=== PATIENT | male | born 1955 | race Caucasian/White ===

== ENCOUNTER 2016-09-11 19:12 | Inpatient (IN) | payer BC ==
--- NOTE | ~2016-09-11 | DS ---
Discharge Summary [facility] [address] [facility] [place]. [address] NAME: DENZEL GALVEZ JR : 57 STATUS : DIS IN PAT#: [id number] AGE: 60 ADM/REG DATE : 09/11/16 MR#: [id number] REPORT SERV DATE: 09/16/16 DICTATED BY: RAFA SAUNDERS DATE: 09/15/16 REPORT STATUS : Draft TRANSCRIBED BY: MODL DATE: 09/15/16 ADMISSION DATE: 09/11/2016 DISCHARGE DATE: 09/15/2016 DISCHARGE DIAGNOSES: 1. Acute kidney injury on chronic kidney disease, creatinine was 5.65 when he was admitted, now down to 1.70, the patient's baseline creatinine is 1.30. The patient's acute kidney injury is due to WERO/ARB. 2. Hyperkalemia with potassium of 6.6 on initial presentation, down to 5.0. 3. History of alcoholic cirrhosis. 4. Hepatic encephalopathy, ammonia level was as high as 198, but now down to 58 with clear mental status. 5. Chronic obstructive pulmonary disease. 6. Obstructive sleep apnea. CONSULTS: 1. Nephrology. 2. GI. PROCEDURES: None. HOSPITAL COURSE: This is a 60-year-old gentleman with history of alcoholic cirrhosis and hepatic encephalopathy, who was admitted to the hospital with an acute kidney injury along with hyperkalemia. For details please refer to an excellent H and P dictated by Dr. Cárdenas. The patient was initially admitted to [facility] and under care of Dr. Alamo until the patient was transferred out of the [facility]. I assumed care of this patient on 09/14/2016 and by then, the patient had already gotten significant clinical improvement with IV fluids alone. The whole time the patient's diuretics and any nephrotoxic agents were held. WERO and ARB were added to allergy list to prevent future episodes. By the day of discharge, the patient's renal function steadily had improved to near baseline. The patient's hyperkalemia was also resolved. The patient is now being discharged home with very close outpatient followup plans. DISCHARGE MEDICATIONS: 1. Lactulose 30 mL p.o. b.i.d. 2. ProAir two puffs inhale q.4 hours p.r.n. 3. Coreg 3.125 mg p.o. b.i.d. 4. Cymbalta 30 mg p.o. q.h.s. 5. Lasix was changed to 40 mg p.o. daily which is a decreased dose from 80 mg b.i.d. 6. Neomycin, which was discontinued. 7. Spiriva inhaler. 8. Symbicort two puffs inhale twice daily. 9. Ambien 10 mg p.o. q.h.s. 10.Aldactone 100 mg p.o. q.a.m., this is a decreased dose from 200 mg daily. 11.Centrum one tablet p.o. daily. 12.Xifaxan 550 mg p.o. b.i.d., a new medication. Discharge Summary [address] [address] NAME: DENZEL GALVEZ JR : 57 STATUS : DIS IN PAT#: [id number] AGE: 60 ADM/REG DATE : 09/11/16 MR#: [id number] REPORT SERV DATE: 09/16/16 DICTATED BY: RAFA SAUNDERS DATE: 09/15/16 REPORT STATUS : Draft TRANSCRIBED BY: MAKENNA DATE: 09/15/16 13.Pepcid 20 mg p.o. b.i.d., a new medication. 14.WERO and ARB were discontinued. DISPOSITION: Home. FOLLOWUP: 1. Please follow up with PCP in the next one to two weeks. 2. Please follow up with Dr. Jorge in the next one to two weeks. A total of 25 minutes spent in coordinating this patient's discharge today. ROMINA/MAKENNA Rafa Saunders MD / [id number] CC: Mary Solares M.D.
--- NOTE | ~2016-09-11 | CN ---
Consultation Report [facility] [address] [place]. [address] NAME: DENZEL GALVEZ JR : 57 STATUS : ADM IN PAT#: [id number] AGE: 60 ADM/REG DATE : 09/11/16 MR#: [id number] REPORT SERV DATE: 09/12/16 DICTATED BY: KLEVER SANCHEZ DATE: 09/12/16 REPORT STATUS : Draft TRANSCRIBED BY: MAKENNA DATE: 09/12/16 CONSULTATION DATE OF CONSULTATION: HISTORY OF PRESENT ILLNESS: This patient is known to me. Recently he was admitted at [facility] with shortness of breath, tense ascites in the body and anasarca. He had large volume of paracentesis. He was started on diuretic regimen. He basically lost 80 to 100 pounds with diuretics. Lab work about eight days ago showed creatinine of 1.3 and potassium 4.9. He had elevated ammonium and was started on neomycin and lactulose. He had been feeling weak for the last few days. His family said he was confused. Laboratory work on day of admission, potassium is 7, his creatinine was up to 5. He might have fallen once. Denies any fever or chills. PAST MEDICAL HISTORY: Cirrhosis, ascites, obstructive sleep apnea, and COPD. SURGICAL HISTORY: Cholecystectomy. PHYSICAL EXAMINATION: VITAL SIGNS: Blood pressure 106/53, pulse is 82. GENERAL: In no distress. Oriented. HEENT: No asterixis. ABDOMEN: Soft, nontender. EXTREMITIES: No peripheral edema. LABORATORY: White count of 16,700, creatinine had gone from 5.6 to 4.82. The potassium is now 6.6 to 5.5. IMPRESSION: 1. Hyperkalemia and acute kidney injury, probably secondary to over diuresis. Certainly the spironolactone would do this. Also the ARB inhibitor probably decreased renal blood flow. This had been decreased two weeks ago. 2. Mild hepatic encephalopathy which is improved. His ammonia is 198. 3. Decompensated cirrhosis. PLAN: I agree with management. We will eventually need to reinstitute diuretics at a lower dose once the renal function improves. Get lactulose and add Rifaximin. Thanks. We will follow. MG/MAKENNA Klever Consultation Report [facility] [address] [place]. [address] NAME: DENZEL GALVEZ JR : 57 STATUS : ADM IN PAT#: [id number] AGE: 60 ADM/REG DATE : 09/11/16 MR#: [id number] REPORT SERV DATE: 09/12/16 DICTATED BY: KLEVER SANCHEZ DATE: 09/12/16 REPORT STATUS : Draft TRANSCRIBED BY: MODL DATE: 09/12/16 Mary Sanchez / [id number] CC: aMry Solares M.D.
--- NOTE | ~2016-09-11 | HP ---
History And Physical [address] [place]. [address] NAME: DENZEL GALVEZ JR : 57 STATUS : ADM IN [facility]#: [id number] AGE: 60 ADM/REG DATE : 09/11/16 MR#: [id number] REPORT SERV DATE: 09/12/16 DICTATED BY: ONOFRE SHEARER DATE: 09/12/16 REPORT STATUS : Draft TRANSCRIBED BY: MODL DATE: 09/12/16 DATE OF ADMISSION: 09/11/2016 CHIEF COMPLAINT: A 60-year-old male presenting with recently diagnosed alcoholic cirrhosis and now evidence of acute renal failure. HISTORY OF PRESENTING ILLNESS: The patient's history was obtained through careful interview with the patient, daughter, and common-law , coupled with review of [facility] medical records. The patient just in 2016 was diagnosed with COPD and cirrhosis. His cirrhosis has been complicated with severe ascites and apparently has had to have paracentesis x2 up to a 9-1/2 L drainage earlier this year. Because of these new diagnoses, the patient has been on multiple new medications, but particularly has had to have many new medications for his cirrhosis. These new medications specifically include increasing doses of Lasix as well as spironolactone and lactulose. The patient admits that over the last few weeks, he has had increasing weakness, debilitation. He this year lost about 100 pounds going from 348 pounds to 250 pounds. The family complains that he has been sleeping sometimes 23 hours a day and is sometimes quite somnolent and even confused. He fell at night because of lightheadedness and weakness and today the family could not even get him up to take his usual morning medications. He describes a dry sore throat with dysphagia, 7/10 severity. No abdominal pain. No chest pain. No shortness of breath. No headache. He admits to diarrhea related to his lactulose. No cough. No shortness of breath now. REVIEW OF SYSTEMS: Otherwise, a 14-point review of systems was obtained and was negative. PAST MEDICAL HISTORY: 1. Cirrhosis, thought to be from alcoholism with mild splenomegaly. 2. Ascites. 3. Hepatic encephalopathy on lactulose. 4. Obstructive sleep apnea, on CPAP. 5. Hepatitis as a teenager. 6. Alcoholism. 7. COPD. History And Physical [address] [place]. [address] NAME: DENZEL GALVEZ JR : 57 STATUS : ADM IN PAT#: [id number] AGE: 60 ADM/REG DATE : 09/11/16 MR#: [id number] REPORT SERV DATE: 09/12/16 DICTATED BY: ONOFRE SHEARER DATE: 09/12/16 REPORT STATUS : Draft TRANSCRIBED BY: MODL DATE: 09/12/16 8. Nephrolithiasis. 9. Abdominal aortic aneurysm, 3.5 cm. PAST SURGICAL HISTORY: 1. Appendectomy. 2. UPPP. 3. Septoplasty. 4. Cervical spine surgery. 5. Cholecystectomy. ALLERGIES: LEVAQUIN. SOCIAL HISTORY: The patient quit smoking just within the last one or two months, used to drink heavy amount of liquor, but has cut back significantly. 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 He has common-law who stays with him quite frequently. His daughter lives locally. 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 FAMILY HISTORY: Diabetes, heart disease, mother and father with cancer. CURRENT MEDICATIONS: Include albuterol inhaler, Symbicort two puffs inhaled twice a day, Coreg 3.125 mg p.o. b.i.d., Cymbalta 30 mg daily, Lasix 80 mg p.o. b.i.d., Avapro 150 mg daily, lactulose 30 mL p.o. b.i.d., multivitamin daily, neomycin 500 mg p.o. four times a day, spironolactone 200 mg p.o. daily, Spiriva inhaled daily, Ambien at nighttime. PHYSICAL EXAMINATION: VITAL SIGNS: Temperature 97.8, pulse 82, blood pressure 106/53, respiratory rate 16, and O2 saturation 97% on room air. GENERAL: A chronically ill-appearing male, not in particular distress though. He is somewhat somnolent, but easily aroused. HEENT: Pupils equal, round, and reactive to light. No conjunctival pallor. No scleral icterus. Nares are patent. Oropharynx is clear of obstruction. Dry mucous membranes with cracking of the tongue in particular. No pharyngeal erythema or tonsillar exudates. NECK: Trachea midline. No thyromegaly. LYMPH: No cervical lymphadenopathy. No supraclavicular lymphadenopathy. RESPIRATORY: Clear to auscultation at bases. No wheezes, rales, or rhonchi. Normal respiratory effort. CARDIOVASCULAR: Regular rate and rhythm. No murmurs, rubs, or gallops. No current extremity edema is appreciated. ABDOMEN: Completely soft, flat, and nontender. I do not appreciate hepatosplenomegaly. DERMATOLOGIC: Warm and dry extremities. No pallor. No cyanosis. Significant tenting of the skin to suggest profound dehydration. PSYCHIATRIC: Normal affect. Good mood. Alert and oriented x3. Sometimes somnolent, lethargic, but easily aroused to vocal stimuli. LABORATORY DATA: White blood cell count 15.9, hemoglobin 17, hematocrit 46, platelets 167. Sodium 123, potassium 6.6, chloride 90, bicarbonate 21, BUN 110, creatinine 5.65, glucose History And Physical [address] [address] NAME: DENZEL GALVEZ : 57 STATUS : ADM IN [facility]#: [id number] AGE: 60 ADM/REG DATE : 09/11/16 MR#: [id number] REPORT SERV DATE: 09/12/16 DICTATED BY: ONOFRE SHEARER DATE: 09/12/16 REPORT STATUS : Draft TRANSCRIBED BY: MAKENNA DATE: 09/12/16 117. Troponin negative. INR 1.4. STUDIES: 1. Chest x-ray by my own evaluation shows no acute cardiopulmonary process. 2. EKG by my own evaluation shows sinus rhythm, right bundle-branch block. ASSESSMENT AND PLAN: 1. Acute renal failure with hyperkalemia. Admit to the [facility] for now. The patient was treated initially in the emergency department with IV insulin, amp of D50, bicarbonate, and calcium gluconate and has been started on IV fluids. We will follow potassium closely. I believe the patient's hyperkalemia and acute renal failure are secondary to new medications, Lasix, spironolactone, and lactulose-induced diarrhea. We will place a Hutchinson catheter. Hold diuretics. Place on IV fluids and IV albumin. 2. Alcoholic cirrhosis. 3. Hepatic encephalopathy. Continue lactulose. Check ammonia level. 4. Chronic obstructive pulmonary disease. 5. Obstructive sleep apnea. Continue CPAP. KPL/MODL Onofre Shearer M.D. / [id number] CC: Mary Solares M.D. Michael Goodman, M.D.
--- NOTE | ~2016-09-11 | HP ---
History And Physical [facility] [address] [place]. [address] NAME: DENZEL GALVEZ JR : 57 STATUS : ADM IN PAT#: [id number] AGE: 60 ADM/REG DATE : 09/11/16 MR#: [id number] REPORT SERV DATE: 09/13/16 DICTATED BY: SARAI TYLER JR DATE: 09/12/16 REPORT STATUS : Draft TRANSCRIBED BY: MODL DATE: 09/12/16 DATE OF ADMISSION: 09/11/2016 Consulted 09/12/[address] Reza Alamo. IMPRESSION: 1. Acute renal failure. Mechanism appears to be renal. Hypoperfusion, associated with central hypovolemia, hypotension, and long-standing, tolerated, Avapro use. 2. Hyperkalemia, multifactorial, including acute renal failure, high dose spironolactone, and the Avapro use. No current documentation of GI bleeding. 3. Recent high dose diuretic effort. He was on Lasix 80 mg b.i.d. and spironolactone 200 mg daily. 4. Recent diagnosis of cirrhosis, about two months ago, with diuretic associated and paracentesis associated losses of 80 to 100 pounds. 5. Hypotension, as above. 6. Antecedent renal function normal, as documented by Dr. Jorge. RECOMMENDATION: As you have done, with interruption of the Avapro (96-hour hep lock). Interruption of the spironolactone and Lasix. Potassium is trending downward. Urine output is excellent, over 1000 mL per 12-hour shift. Expect a rapid recovery. He will be a good candidate for resumption of the spironolactone and/or the loop diuretic as needed, once euvolemia has been restored. In the setting of the necessity of using spironolactone and loop diuretic, and the possibility of subsequent fluid shifting intraperitoneal leak, it may be worthwhile to use an alternative to Avapro for hypertensive management. Thanks for the consultation. HISTORY: Gentleman was diagnosed with cirrhosis couple months ago. He has been treated with Lasix and spironolactone as above. He was initially hospitalized at [facility] about two months ago and started on medications. He saw Dr. Jorge in the office last week and renal function at that office visit was documented as being normal. He has been on medications as listed above. He generally feels better until the past three or four days when he has had pronounced weakness and some postural dizziness, but no syncope or near syncope. He presented to the [facility] Emergency Room last evening complaining of increasing weakness and debilitation and the weight loss. There was description of hypersomnolence and sleeping throughout the day. He had experienced some falls at home. PAST MEDICAL HISTORY: 1. Cirrhosis, thought to be due to alcohol use. 2. Ascites, recent high volume paracentesis. 3. History of hepatic encephalopathy. Treated with lactulose with associated diarrhea and volume loss. 4. Obstructive sleep apnea, treated with CPAP. 5. Remote history of hepatitis as a teenager. 6. Alcohol use. 7. Chronic obstructive pulmonary disease. History And Physical [address] [place]. [address] NAME: DENZEL GALVEZ JR : 57 STATUS : ADM IN [facility]#: [id number] AGE: 60 ADM/REG DATE : 09/11/16 MR#: [id number] REPORT SERV DATE: 09/13/16 DICTATED BY: SARAI TYLER JR. DATE: 09/12/16 REPORT STATUS : Draft TRANSCRIBED BY: MAKENNA DATE: 09/12/16 8. Remote history of nephrolithiasis. 9. Known 3.5 cm abdominal aortic aneurysm. SURGICAL HISTORY: 1. Cholecystectomy. 2. Appendectomy. 3. UPPP. 4. Septoplasty. 5. Cervical spine surgery, not otherwise specified. ALLERGIES: STATED TO LEVAQUIN. FAMILY HISTORY: Notable for heart disease, diabetes in both parents with undefined cancer. SOCIAL HISTORY: Retired as a nurse. He has quit smoking recently because the cigarettes he says it did not taste good. He does not admit to being a reformed smoker, he just could not smoke. Regular alcohol use, though recently he has cut back. MEDICATIONS: At entry were listed as albuterol, Symbicort, carvedilol, Cymbalta, Lasix, Avapro, lactulose, multivitamin, neomycin, spironolactone, Spiriva and Ambien at bedtime. REVIEW OF SYSTEMS: Not otherwise reportable about this client for head, neck, pulmonary, cardiac, GI, , musculoskeletal, neurological, integumentary, or psychiatric complaint. PHYSICAL EXAMINATION: GENERAL: Healthy-appearing overweight white male, who is awake, alert, answers questions appropriately, cooperative and interacts well with examiner. Color is good. SKIN: Warm and dry. HEENT: Icterus is not appreciated. Pupils appear equal. Periorbital is not present. No epistaxis, no nasal discharge. Oral mucous membranes are moist. Facial symmetry is present. Pinnae are normal. No significant male pattern hair loss. NECK: Good range of motion, active and passive. No carotid bruits. No neck vein distention. No lymphadenopathy. Trachea is midline. LUNGS: Clear to auscultation, unlabored, no cough, equal air entry. HEART: Heart tones regular without audible murmur, gallop, or rub. PMI is not displaced. ABDOMEN: Generally, soft and nontender. I cannot appreciate a fluid wave. Organomegaly is not felt. Aneurysm is not felt. Bruits are not heard. Bowel sounds are present. GENITALIA: Hutchinson catheter is in place. Draining a dark yellow urine. No scrotal edema appreciated. EXTREMITIES: With no distal edema, symmetrically diminished, but present distal pulses. No lower extremity edema. No cyanosis of the nail beds. NEUROLOGIC: Cognition and speech are normal. Moves all extremities. Gait is not tested. Strength appears symmetrical. Sensory is not observed. LAB DATA: Entry sodium was 123, this morning up to 127; potassium on entry 6.6, down to 5.3 this morning; BUN 110, down to 104 this morning; creatinine 5.6, down to 4.8 this morning; History And Physical [address] [address] NAME: LEONORDENZEL RODNEY SALDAÑA : 57 STATUS : ADM IN [facility]#: [id number] AGE: 60 ADM/REG DATE : 09/11/16 MR#: [id number] REPORT SERV DATE: 09/13/16 DICTATED BY: SARAI TYLER JR DATE: 09/12/16 REPORT STATUS : Draft TRANSCRIBED BY: MAKENNA DATE: 09/12/16 estimated GFR not meaningful in this setting; calcium 9.5; magnesium 3.3. Albumin measured at 3.9. TSH 0.994. Chest x-ray on entry with clear lung hillman bilaterally, normal diaphragms, slightly increased cardiac silhouette. No other imaging studies seen. Can go to a monitored bed from my standpoint. DF/MAKENNA Sarai Tyler Jr, M.D. / [id number] CC: Mary Solares M.D. Michael Goodman, M.D. Suresh Enjeti, M.D.
[~2016-09-11 19:12] MED LIST: AMB10 PO
[2016-09-11 19:44] LABS: BASOPHILS 0.1 %; BASOPHILS ABSOLUTE 0.02 10/3/uL (0.0-0.16); EOSINOPHILS 0.7 %; EOSINOPHILS ABSOLUTE 0.11 10/3/uL (0.0-0.53); HEMATOCRIT 46.4 % (40.0-51.0); HEMOGLOBIN 16.9 g/dL (13.6-17.8); IMMATURE GRANULOCYTES 0.5 %; IMMATURE GRANULOCYTES ABSOLUTE 0.08 10/3/uL (0.0-0.11); LYMPHOCYTES 15.8 %; LYMPHOCYTES ABSOLUTE 2.51 10/3/uL (0.67-4.30); MEAN CORPUSCULAR HEMOGLOB 32.9 pg (26.0-34.0); MEAN PLATELET VOLUME 11.2 fL (9.2-13.0); MONOCYTES 11.1 %; MONOCYTES ABSOLUTE 1.76 10/3/uL (0.21-1.20); NEUTROPHILS 71.8 %; PLATELET COUNT 167 10/3/uL (150-400); RBC DISTRIBUTION WIDTH 13.6 % (12.0-16.0); RED CELL COUNT 5.14 10/6/uL (4.7-6.1)
[2016-09-11 19:46] LABS: ER CBC TAT 0 Hrs 11 Mins; MANUAL DIFF NO %; MEAN CORPUS HGB CONC 36.4 g/dL (32.0-36.0); MEAN CORPUSCULAR VOLUME 90.3 fL (80-100); WHITE BLOOD CELLS 15.9 10/3/uL (4.5-10.5)
[2016-09-11 19:53] LABS: INTERNATIONAL NORMAL RATI 1.4 UNITS (-); PROTIME (NOT ORD) 16.7 SEC (12.0-14.5)
[2016-09-11 19:54] LABS: PARTIAL THROMBO TIME 37.3 SEC (22.5-37.2)
[2016-09-11 20:02] LABS: BUN (BLOOD UREA NITROGEN) 110 MG/DL (6-23); CALCIUM, SERUM 9.6 MG/DL (8.5-10.4); CHEST PAIN PROFILE TAT 0 Hrs 27 Mins; CHLORIDE, SERUM 90 MMOL/L (96-112); CO2 (CARBON DIOXIDE) 21 MMOL/L (24-34); CREATININE 5.65 MG/DL (0.70-1.30); GFR AFRICAN AMERICAN 12 ML/MIN (>=60); GFR NON AFRICAN AMERICAN 10 ML/MIN (>=60); POTASSIUM, SERUM 6.6 MMOL/L (3.5-5.3); SODIUM, SERUM 123 MMOL/L (135-148); TROPONIN I <0.02 NG/ML (<0.05)
[2016-09-11 20:03] LABS: GLUCOSE, SERUM 117 MG/DL (60-99)
[2016-09-11] MEDS ORDERED: CONSTULOSE PO (20:51)
[2016-09-11] MEDS ORDERED: PROAIR HFA INH (20:51)
[2016-09-11] MEDS ORDERED: COREG3 PO (20:52)
[2016-09-11] MEDS ORDERED: AVAP150 PO (20:52)
[2016-09-11] MEDS ORDERED: CYMBALTA30 PO (20:52)
[2016-09-11] MEDS ORDERED: L80 PO (20:52)
[2016-09-11] MEDS ORDERED: NEO500 PO (20:53)
[2016-09-11] MEDS ORDERED: SYMBICORT 160/41 INH INH (20:55)
[2016-09-11] MEDS ORDERED: SPIRIVA (20:55)
[2016-09-11] MEDS ORDERED: AMB10 PO (20:55)
[2016-09-11] MEDS ORDERED: SPIR100 PO (20:56)
[2016-09-11] MEDS ORDERED: CENTRUM PO (20:56)
[2016-09-12 04:01] LABS: ASCORBIC ACID (UR NOT ORDER) 40 (NEG); BILIRUBIN, URINE NEGATIVE (NEG); KETONE, URINE NEGATIVE (NEG); LEUKOCYTE ESTERASE(NOT OR NEG (NEG); WBC (NOT ORDERED) (RFLEX) 2 (0-5)
[2016-09-12 04:12] LABS: BASOPHILS 0.1 %; BASOPHILS ABSOLUTE 0.01 10/3/uL (0.0-0.16); EOSINOPHILS ABSOLUTE 0.17 10/3/uL (0.0-0.53); HEMATOCRIT 43.1 % (40.0-51.0); HEMOGLOBIN 15.5 g/dL (13.6-17.8); IMMATURE GRANULOCYTES 0.3 %; IMMATURE GRANULOCYTES ABSOLUTE 0.05 10/3/uL (0.0-0.11); LYMPHOCYTES 15.8 %; LYMPHOCYTES ABSOLUTE 2.65 10/3/uL (0.67-4.30); MEAN CORPUSCULAR HEMOGLOB 32.2 pg (26.0-34.0); MEAN CORPUSCULAR VOLUME 89.4 fL (80-100); MONOCYTES 9.5 %; MONOCYTES ABSOLUTE 1.59 10/3/uL (0.21-1.20); NEUTROPHILS 73.3 %; NEUTROPHILS ABSOLUTE 12.25 10/3/uL (2.02-8.40); PLATELET COUNT 140 10/3/uL (150-400); RBC DISTRIBUTION WIDTH 13.7 % (12.0-16.0); RED CELL COUNT 4.82 10/6/uL (4.7-6.1); WHITE BLOOD CELLS 16.7 10/3/uL (4.5-10.5)
[2016-09-12 04:17] LABS: MANUAL DIFF NO %
[2016-09-12 04:23] LABS: INTERNATIONAL NORMAL RATI 1.4 UNITS (-); PARTIAL THROMBO TIME 36.2 SEC (22.5-37.2); PROTIME (NOT ORD) 16.6 SEC (12.0-14.5)
[2016-09-12 04:41] LABS: ALBUMIN 3.9 G/DL (3.5-5.0); CALCIUM, SERUM 9.5 MG/DL (8.5-10.4); CHLORIDE, SERUM 94 MMOL/L (96-112); CO2 (CARBON DIOXIDE) 18 MMOL/L (24-34); SGOT(AST) 34 U/L (5-40); SGPT(ALT) 51 U/L (5-65); SODIUM, SERUM 127 MMOL/L (135-148); ULTRASENSITIVE TSH 0.994 MCIU/ML (0.358-3.740)
[2016-09-12 04:46] LABS: A/G RATIO 0.9 (0.7-1.9); ALKALINE PHOSPHATASE 130 U/L (45-117); BUN (BLOOD UREA NITROGEN) 104 MG/DL (6-23); CREATININE 4.82 MG/DL (0.70-1.30); GFR AFRICAN AMERICAN 14 ML/MIN (>=60); GFR NON AFRICAN AMERICAN 12 ML/MIN (>=60); GLOBULIN 4.5 G/DL (2.5-4.1); GLUCOSE, SERUM 93 MG/DL (60-99); POTASSIUM, SERUM 6.1 MMOL/L (3.5-5.3); TOTAL BILIRUBIN 1.5 MG/DL (0-1.2); TOTAL PROTEIN 8.4 G/DL (6.0-8.5)
[2016-09-12 16:18] LABS: T PROTEIN (ELECT)(NOT OR 7.9 G/DL (6.0-8.5)
[2016-09-12 17:35] LABS: CREATININE, URINE 63.8 MG/DL
[2016-09-13 04:23] LABS: BASOPHILS 0.2 %; BASOPHILS ABSOLUTE 0.02 10/3/uL (0.0-0.16); EOSINOPHILS 1.3 %; EOSINOPHILS ABSOLUTE 0.13 10/3/uL (0.0-0.53); HEMATOCRIT 41.8 % (40.0-51.0); HEMOGLOBIN 14.4 g/dL (13.6-17.8); IMMATURE GRANULOCYTES 0.2 %; IMMATURE GRANULOCYTES ABSOLUTE 0.02 10/3/uL (0.0-0.11); LYMPHOCYTES 17.6 %; LYMPHOCYTES ABSOLUTE 1.74 10/3/uL (0.67-4.30); MEAN CORPUS HGB CONC 34.4 g/dL (32.0-36.0); MEAN CORPUSCULAR HEMOGLOB 31.1 pg (26.0-34.0); MEAN CORPUSCULAR VOLUME 90.3 fL (80-100); MEAN PLATELET VOLUME 10.9 fL (9.2-13.0); MONOCYTES 11.6 %; MONOCYTES ABSOLUTE 1.15 10/3/uL (0.21-1.20); NEUTROPHILS 69.1 %; NEUTROPHILS ABSOLUTE 6.84 10/3/uL (2.02-8.40); PLATELET COUNT 102 10/3/uL (150-400); RED CELL COUNT 4.63 10/6/uL (4.7-6.1)
[2016-09-13 04:25] LABS: MANUAL DIFF NO %; WHITE BLOOD CELLS 9.9 10/3/uL (4.5-10.5)
[2016-09-13 04:29] LABS: INTERNATIONAL NORMAL RATI 1.3 UNITS (-); PROTIME (NOT ORD) 16.5 SEC (12.0-14.5)
[2016-09-13 04:36] LABS: A/G RATIO 1.1 (0.7-1.9); ALBUMIN 4.1 G/DL (3.5-5.0); ALKALINE PHOSPHATASE 126 U/L (45-117); CALCIUM, SERUM 9.6 MG/DL (8.5-10.4); CHLORIDE, SERUM 103 MMOL/L (96-112); CO2 (CARBON DIOXIDE) 20 MMOL/L (24-34); GFR AFRICAN AMERICAN 23 ML/MIN (>=60); GFR NON AFRICAN AMERICAN 20 ML/MIN (>=60); GLOBULIN 3.8 G/DL (2.5-4.1); GLUCOSE, SERUM 106 MG/DL (60-99); POTASSIUM, SERUM 4.8 MMOL/L (3.5-5.3); SGOT(AST) 49 U/L (5-40); SGPT(ALT) 64 U/L (5-65); TOTAL BILIRUBIN 1.2 MG/DL (0-1.2); TOTAL PROTEIN 7.9 G/DL (6.0-8.5)
[2016-09-13 04:43] LABS: BUN (BLOOD UREA NITROGEN) 70 MG/DL (6-23); CREATININE 3.27 MG/DL (0.70-1.30); SODIUM, SERUM 134 MMOL/L (135-148)
[2016-09-13 10:49] LABS: A/G 1.51 RATIO (0.9-2.10); ALB RELATIVE % 60.1 % (60.0-89.0); ALBUMIN (ELECTRO) 4.75 GM/DL (3.2-5.5); ALPHA 1 (ELECTRO) 0.21 GM/DL (0.1-0.4); ALPHA 1 RELAT % (NOT ORD) 2.7 % (1.0-4.0); ALPHA 2 (ELECTRO) 0.79 GM/DL (0.5-1.10); BETA GLOBULIN (SPE) 0.73 GM/DL (0.60-1.30); BETA RELATIVE % 9.3 % (9.0-22.0); GAMMA GLOBULIN (SPE) 1.41 G/DL (0.70-1.60); GAMMA RELAT % 17.9 % (6.0-22.0)
[2016-09-14 06:01] LABS: BASOPHILS 0.1 %; BASOPHILS ABSOLUTE 0.01 10/3/uL (0.0-0.16); EOSINOPHILS 1.3 %; EOSINOPHILS ABSOLUTE 0.11 10/3/uL (0.0-0.53); HEMATOCRIT 43.4 % (40.0-51.0); HEMOGLOBIN 14.8 g/dL (13.6-17.8); IMMATURE GRANULOCYTES 0.2 %; IMMATURE GRANULOCYTES ABSOLUTE 0.02 10/3/uL (0.0-0.11); LYMPHOCYTES 20.5 %; LYMPHOCYTES ABSOLUTE 1.75 10/3/uL (0.67-4.30); MEAN CORPUS HGB CONC 34.1 g/dL (32.0-36.0); MEAN CORPUSCULAR HEMOGLOB 31.3 pg (26.0-34.0); MEAN CORPUSCULAR VOLUME 91.8 fL (80-100); MEAN PLATELET VOLUME 10.9 fL (9.2-13.0); MONOCYTES 7.5 %; MONOCYTES ABSOLUTE 0.64 10/3/uL (0.21-1.20); NEUTROPHILS 70.4 %; NEUTROPHILS ABSOLUTE 6.01 10/3/uL (2.02-8.40); PLATELET COUNT 106 10/3/uL (150-400); RBC DISTRIBUTION WIDTH 13.5 % (12.0-16.0); RED CELL COUNT 4.73 10/6/uL (4.7-6.1); WHITE BLOOD CELLS 8.5 10/3/uL (4.5-10.5)
[2016-09-14 06:07] LABS: MANUAL DIFF NO %
[2016-09-14 06:22] LABS: ALBUMIN 3.9 G/DL (3.5-5.0); CALCIUM, SERUM 9.5 MG/DL (8.5-10.4); CHLORIDE, SERUM 99 MMOL/L (96-112); CO2 (CARBON DIOXIDE) 21 MMOL/L (24-34); GFR AFRICAN AMERICAN 35 ML/MIN (>=60); GFR NON AFRICAN AMERICAN 30 ML/MIN (>=60); GLUCOSE, SERUM 127 MG/DL (60-99); PHOSPHORUS, SERUM 3.2 MG/DL (2.5-4.5); POTASSIUM, SERUM 5.1 MMOL/L (3.5-5.3); SODIUM, SERUM 131 MMOL/L (135-148)
[2016-09-14 06:23] LABS: BUN (BLOOD UREA NITROGEN) 50 MG/DL (6-23)
[2016-09-14 15:14] LABS: INTERNATIONAL NORMAL RATI 1.3 UNITS (-); PROTIME (NOT ORD) 16.3 SEC (12.0-14.5)
[2016-09-14 15:21] LABS: ALBUMIN 3.7 G/DL (3.5-5.0); ALKALINE PHOSPHATASE 128 U/L (45-117); BUN (BLOOD UREA NITROGEN) 44 MG/DL (6-23); CHLORIDE, SERUM 98 MMOL/L (96-112); CO2 (CARBON DIOXIDE) 22 MMOL/L (24-34); CREATININE 2.15 MG/DL (0.70-1.30); GFR AFRICAN AMERICAN 38 ML/MIN (>=60); GFR NON AFRICAN AMERICAN 33 ML/MIN (>=60); GLOBULIN 3.6 G/DL (2.5-4.1); GLUCOSE, SERUM 227 MG/DL (60-99); SGOT(AST) 54 U/L (5-40); SGPT(ALT) 72 U/L (5-65); SODIUM, SERUM 133 MMOL/L (135-148); TOTAL PROTEIN 7.3 G/DL (6.0-8.5)
[2016-09-15 07:00] LABS: BASOPHILS 0.3 %; BASOPHILS ABSOLUTE 0.02 10/3/uL (0.0-0.16); EOSINOPHILS 1.8 %; EOSINOPHILS ABSOLUTE 0.13 10/3/uL (0.0-0.53); HEMATOCRIT 39.3 % (40.0-51.0); HEMOGLOBIN 13.7 g/dL (13.6-17.8); IMMATURE GRANULOCYTES 0.4 %; IMMATURE GRANULOCYTES ABSOLUTE 0.03 10/3/uL (0.0-0.11); LYMPHOCYTES 19.9 %; LYMPHOCYTES ABSOLUTE 1.43 10/3/uL (0.67-4.30); MEAN CORPUS HGB CONC 34.9 g/dL (32.0-36.0); MEAN CORPUSCULAR HEMOGLOB 31.7 pg (26.0-34.0); MONOCYTES 11.1 %; NEUTROPHILS 66.5 %; NEUTROPHILS ABSOLUTE 4.78 10/3/uL (2.02-8.40); PLATELET COUNT 108 10/3/uL (150-400); RBC DISTRIBUTION WIDTH 13.6 % (12.0-16.0); RED CELL COUNT 4.32 10/6/uL (4.7-6.1); WHITE BLOOD CELLS 7.2 10/3/uL (4.5-10.5)
[2016-09-15 07:04] LABS: MANUAL DIFF NO %
[2016-09-15 07:15] LABS: ALBUMIN 3.7 G/DL (3.5-5.0); CALCIUM, SERUM 9.2 MG/DL (8.5-10.4); CHLORIDE, SERUM 100 MMOL/L (96-112); CO2 (CARBON DIOXIDE) 21 MMOL/L (24-34); CREATININE 1.79 MG/DL (0.70-1.30); GFR AFRICAN AMERICAN 47 ML/MIN (>=60); GFR NON AFRICAN AMERICAN 41 ML/MIN (>=60); PHOSPHORUS, SERUM 2.3 MG/DL (2.5-4.5); POTASSIUM, SERUM 4.9 MMOL/L (3.5-5.3); SODIUM, SERUM 134 MMOL/L (135-148)
[2016-09-15 07:19] LABS: BUN (BLOOD UREA NITROGEN) 35 MG/DL (6-23); GLUCOSE, SERUM 112 MG/DL (60-99)
[2016-09-15] MEDS ORDERED: XIFAXAN550 MG PO (11:17)
[2016-09-15] MEDS ORDERED: PEP20 PO (11:17)
== END 2016-09-15 11:52 | disposition home or self-care (01) | DRG 683 ==
LOC: ER 19:12 → IMCU 21:04 → 6NO 09-13 14:45
PROVIDERS: Emergency Medicine; Hospitalist; Internal Medicine; Internal Medicine Gastroenterology; Internal Medicine Nephrology; Specialist
DX: N17.9 Acute kidney failure, unspecified (principal); K52.1 Toxic gastroenteritis and colitis; K72.90 Hepatic failure, unspecified without coma; K70.31 Alcoholic cirrhosis of liver with ascites; E87.5 Hyperkalemia; E87.1 Hypo-osmolality and hyponatremia; G47.33 Obstructive sleep apnea (adult) (pediatric); J44.9 Chronic obstructive pulmonary disease, unspecified; T50.0X5A Adverse effect of mineralocorticoids and their antagonists, initial encounter; T46.5X5A Adverse effect of other antihypertensive drugs, initial encounter; T47.3X5A Adverse effect of saline and osmotic laxatives, initial encounter; I71.4 Abdominal aortic aneurysm, without rupture; F10.20 Alcohol dependence, uncomplicated; Z87.442 Personal history of urinary calculi; Z68.36 Body mass index [BMI] 36.0-36.9, adult; Z90.49 Acquired absence of other specified parts of digestive tract; Z88.1 Allergy status to other antibiotic agents; Z83.3 Family history of diabetes mellitus
CPT/HCPCS: 71010; 71020; 80048; 80053; 80069; 81001; 82140; 82330; 82570; 82803; 82947; 83605; 83735; 84132; 84155; 84165; 84295; 84300; 84443; 84484; 85014; 85025; 85610; 85730; 87641; 93005; 94640; 96365; 96375; 97161-GP; 99291; A9270-GY; J0610; P9047